=== PATIENT | male | born 1950 | race Two or more races ===

== ENCOUNTER 2024-11-17 07:15 | Day surgery (SDC) | payer MEDICARE, OTHER, SELFPAY ==
[2024-11-16 16:32] VITALS: BMI 23.6
[2024-11-17] VITALS (15 sets, daily range): BP systolic 92–122; BP diastolic 56–85; PULSE 70–121; RESP 12–20; TEMP 36.3–36.7; O2SAT 98–100
[2024-11-17 07:41] LABS: Basophils # (Auto) 0.1 Thou/mm3 (0.0-0.2); Basophils % (Auto) 1 % (0-2.5); Eosinophils # (Auto) 0.3 Thou/mm3 (0.0-0.5); Eosinophils % (Auto) 2 % (0-10); Hematocrit 43.4 % (41.0-53.0); Hemoglobin 13.6 g/dL (13.5-16.0); Immature Granulocytes % (Auto) 1 % (0-0); Immature Granulocytes Auto 0.06 Thou/mm3 (0.00-0.00); Lymphocytes # (Auto) 1.7 Thou/mm3 (1.0-4.8); Lymphocytes % (Auto) 13 % (10-50); Mean Corpuscular HGB Conc 31.3 g/dl (31.0-37.0); Mean Corpuscular Hemoglobin 21.2 pg (25.0-35.0); Mean Corpuscular Volume 68 fL (80-100); Monocytes # (Auto) 0.8 Thou/mm3 (0.0-0.8); Monocytes % (Auto) 6 % (0-12); Neutrophils # (Auto) 10.1 Thou/mm3 (1.8-7.7); Neutrophils % (Auto) 78 % (37-80); Nucleated Red Blood Cell % 0 /100 WBC (0); Platelet Count 277 Thou/mm3 (140-440); RDW Standard Deviation 38.7 fL (35.1-43.9); Red Blood Count 6.43 Miln/mm3 (4.50-5.90)
[2024-11-17 07:58] LABS: Anion Gap 6 (7-16); BUN/Creatinine Ratio 16 Ratio (12-20); Blood Urea Nitrogen 18 mg/dL (9-23); Calcium 9.1 mg/dL (8.3-10.6); Carbon Dioxide 28.6 mMol/L (20.0-31.0); Chloride 105 mMol/L (98-107); Creatinine (Component) 1.1 mg/dL (0.6-1.3); Glucose 119 mg/dL (74-106); Osmolality,Calculated 282 (275-295); Potassium 4.6 mMol/L (3.4-5.1); Sodium 140 mMol/L (136-145); eGFR > 60 See Note
[2024-11-17 08:04] LABS: Partial Thromboplastin Time 26.8 Seconds (22.0-36.0); Prothrombin Time 11.4 Seconds (9.0-12.2)
[2024-11-17] MEDS: SODIUM CHLORIDE 0.45 % 500 ML 100 ML IV (08:05)
--- NOTE | 2024-11-17 09:38 | ESOP_ITS ---
Cardiac Cath Procedure Procedure Name DATE OF OPERATION: 11/17/2024 PROCEDURE PERFORMED: 1. Successful PCI of the proximal to mid LCx with 2.75 x 18 mm and 2.5 x 28 mm Bhagat JOSE stents. 2. Left heart cardiac catheterization including right, left coronary angiograms and left ventriculogram 2. Ultrasound-guided access of the right radial artery 3. Conscious sedation for 30 minutes COIN COLLECTOR: Ochoa Gorman MD Procedure Narrative HISTORY AND INDICATIONS: A 74-year-old male with a past medical history of CAD status post PCI to LAD with 2 overlapping stents on 09/29/2024 [STEMI presentation], residual moderate to severe stenosis in the proximal to mid LCx and mild disease in the RCA, mild to moderate systolic congestive heart failure with an EF of around 40% - 45%, BPH, chronic pain, history of back surgery in 2019, hyperlipidemia was brought in to the cardiac attrition for an elective left heart cardiac attrition and PCI of the LCx. All risk benefits and alternatives of cardiac catheterization were explained to the patient in detail including the risk of bleeding, stroke, heart attack and . Patient agreeable for the procedure and provided consent for the same. Patient brought to the cardiac catheterization lab for further evaluation with [facility] and possible PCI. DESCRIPTION OF PROCEDURE: The patient was brought to the cardiac catheterization lab analysis the precautions were followed. Patient was given 1 Mg of Versed and 50 mcg of fentanyl for moderate conscious sedation. 2 mL of lidocaine was given in the right wrist. The right radial artery was accessed via the ultrasound guidance as well as micropuncture technique. A 6 Yoruba glide sheath was introduced. We then used a 6 Yoruba TIG 4.5 catheter to perform the left and right coronary angiogram as well as a left ventriculogram which showed the following findings. 1. Left main was a large-caliber vessel and long vessel without any significant disease. 2. Right dominant circulation 3. LAD is a large sized artery with patent stents in the proximal to mid LAD and moderate 40 to 50% stenosis in the mid LAD beyond the stents, distal LAD with only mild disease. 4. LCx the LAD is occluded at moderate to severe disease from the proximal to midportion of the LCx with severe 80% stenosis in the mid portion. Small OM1 and medium OM 2 with no significant disease. 5. RCA is a dominant large size artery with mild 30 to 40% stenosis in the mid RCA. RPDA and RPL with mild luminal regularities. 6. LVEDP was low at 8 mmHg. LVEF was low normal at 53%. There was no significant transvalvular right gradient. INTERVENTION: A 6 Yoruba EBU 3.5 guide was used to engage the left main artery. Patient was given weight-based heparin and ACT was greater than 250 although the procedure. Run-through guidewire was used to cross the lesion in the proximal and mid LCx without any complications. We then used a 2.5 x 20 mm semicompliant balloon to perform predilation of the of the lesion at 68 and 10 marion for a total of 3 inflations. A 2.5 x 28 mm Bhagat JOSE stent in the mid LCx and deployed successfully at 9 and 10 marion for a total of 50 seconds. We then used a 2.75 x 18 mm Bhagat JOSE stent and deployed in the proximal to mid LCx at 12 and 14 marion for a total of 45 seconds with excellent results and ALEKSANDR-3 flow noted. There were no complications. Final images were taken and all interventional equipment was Patient is already on aspirin and Brilinta at home which were continued and was given additional Brilinta 90 mg after the procedure. Patient blood pressure was slightly low during the procedure and received a total of 500 mL bolus along with 300 mg of Janak-Synephrine IV during the procedure. A radial band was used to achieve the hemostasis of the right radial artery access. Patient will be monitored in the cardiac In[employer] for the next 2 to 3 hours and will be discharged home if hemodynamically stable. Complications: None Specimens: None Blood loss: Estimated 10 ML Summary/findings: 1. History of STEMI and with residual moderate to severe disease in the LCx. LHC showed patent stents in the proximal to mid LAD and residual moderate 40 to 50% disease in the mid LAD beyond the stents, moderate to severe stenosis of the long segment proximal to mid the LCx with severe 80% stenosis, mild 30 to 40% disease in the mid RCA. 2. LVEF was low normal around 50%. LVEDP was low at 8 mmHg. There was no significant transvalvular aortic gradient. 3. Successful PCI performed from the proximal to mid LCx with in the mid LCx with 2.75 x 18 mm and 2.5 x 28 mm Bhagat JOSE stents respectively with excellent results and ALEKSANDR-3 flow. No complications. Recommendations: 1. Recommended dual antiplatelet therapy with aspirin 81 mg once daily lifetime and Brilinta 90 mg twice daily for at least 1 year along with beta-jessica, high intensity statin Lipitor 80 mg once daily and Entresto given his history of mild systolic congestive heart failure. 2. Recommend aggressive risk factor modification 3. Patient recommended not to lift any weight more than 5 to 10 pounds for the next 7 days and follow-up with me in office in 7 days.. Ochoa Gorman MD Interventional Cardiology.
== END 2024-11-17 13:25 | disposition home or self-care (01) ==
PROVIDERS: PCP Family Medicine; Referring Provider Internal Medicine Cardiovascular Disease; Visit Provider Internal Medicine Cardiovascular Disease
PROC: (CPT 93458; principal; 2024-11-17 07:30)
DX: I25.119 Atherosclerotic heart disease of native coronary artery with unspecified angina pectoris (principal); E78.5 Hyperlipidemia, unspecified; G89.29 Other chronic pain; I50.22 Chronic systolic (congestive) heart failure; N40.0 Benign prostatic hyperplasia without lower urinary tract symptoms; Z98.61 Coronary angioplasty status
CPT/HCPCS: 93458; C9600; 36415; 80048; 85025; 85347; 85610; 85730; 99152; 99153; A4649; C1725; C1769; C1874; C1887; C1894; J0171; J0461; J1643; J2250; J2310; J2371; J3010; J3490; J7030; Q9967; J2305